=== PATIENT | male | born 1960 | race Caucasian/White ===

== ENCOUNTER 2021-07-30 09:27 | Emergency (ER) | payer OTHER ==
[~2021-07-30] VITALS: Ht 182.9 cm; Wt 88.6 kg
[2021-07-30 09:32] VITALS: BP 145/59
--- NOTE | 2021-07-30 10:49 | RAD ---
PROCEDURE: Left ribs including PA chest 07/30/2021 10:44 AM. INDICATION: Pain after falling yesterday. COMPARISON: None. FINDINGS: There are deformities of the posterior left fourth through sixth ribs. These appear chronic . There is a fracture of the left lateral sixth rib with minimal displacement. No other left rib abno rmality is seen. PA view of the chest shows no infiltrate or effusion. Heart size is normal. IMPRESSION: Chronic left rib deformities with acute fracture of the lateral sixth rib. Electronically signed by: Benny Singh Jr., MD (07/30/2021 10:46 AM) [id number]
[2021-07-30] MEDS ORDERED: HYDR-2155 PO (11:12)
[2021-07-30] MEDS ORDERED: CYCL10TA19 PO (11:12)
--- NOTE | 2021-07-30 11:13 | PHYS DOC ---
Past History Past Surgical History: No Surgical History Alcohol Use: Occasionally Adult General Chief Complaint Chief Complaint: RIB PAIN HPI HPI Patient is a 61-year-old male patient presenting to the ED today complaining of 5 out of 10 sharp intermittent left rib pain, symptoms began yesterday after he fell while running. Patient denies any loss of consciousness, denies hitting his head on the ground. Denies any neck, mid or low back pain. Reports the pain as worse on stretching. Review of Systems Review of Systems Constitutional: Denies fever or chills [] Eyes: Denies change in visual acuity, redness, or eye pain [] HENT: Denies nasal congestion or sore throat [] Respiratory: Reports left rib pain. Denies cough or shortness of breath [] Cardiovascular: No additional information not addressed in HPI [] GI: Denies abdominal pain, nausea, vomiting, bloody stools or diarrhea [] : Denies dysuria or hematuria [] Musculoskeletal: Denies back pain or joint pain [] Integument: Denies rash or skin lesions [] Neurologic: Denies headache, focal weakness or sensory changes [] All other systems were reviewed and found to be within normal limits, except as documented in this note. Physical Exam Physical Exam Constitutional: Well developed, well nourished, no acute distress, non-toxic appearance. [] HENT: Normocephalic, atraumatic, bilateral external ears normal, oropharynx moist, no oral exudates, nose normal. [] Eyes: PERRLA, EOMI, conjunctiva normal, no discharge. [] Neck: Normal range of motion, no tenderness, supple, no stridor. [] Cardiovascular:Heart rate regular rhythm, no murmur [] Lungs & Thorax: Left ribs with no obvious bruising, no obvious deformity, tenderness on palpation of the left lateral ribs approximately ribs 5 through 8 bilateral breath sounds clear to auscultation [] Abdomen: Bowel sounds normal, soft, no tenderness, no masses, no pulsatile masses. [] Skin: Warm, dry, no erythema, no rash. [] Back: No tenderness, no CVA tenderness. [] Extremities: No tenderness, no cyanosis, no clubbing, ROM intact, no edema. [] Neurologic: Alert and oriented X 3, normal motor function, normal sensory function, no focal deficits noted. [] Psychologic: Affect normal, judgement normal, mood normal. [] Current Patient Data Vital Signs Vital Signs Date Time Temp Pulse Resp B/P (MAP) Pulse Ox O2 Delivery O2 Flow Rate FiO2 07/30/21 09:32 97.9 59 16 145/59 (87) 98 Room Air EKG EKG [] Radiology/Procedures Radiology/Procedures []PROCEDURE: RIBS BILAT & PA CXR 4+V PROCEDURE: Left ribs including PA chest 07/30/2021 10:44 AM. INDICATION: Pain after falling yesterday. COMPARISON: None. FINDINGS: There are deformities of the posterior left fourth through sixth ribs. These appear chronic. There is a fracture of the left lateral sixth rib with minimal displacement. No other left rib abnormality is seen. PA view of the chest shows no infiltrate or effusion. Heart size is normal. IMPRESSION: Chronic left rib deformities with acute fracture of the lateral sixth rib. Electronically signed by: Derrick Singh Jr., MD (07/30/2021 10:46 AM) [id number] DICTATED AND SIGNED BY: DERRICK SINGH Jr, MD DATE: 07/30/21 1044 CC: FRANCISCO ZUNIGA MD; FRANCK ESQUIVEL APRN; AVA FORDE DO ~MTH0 0 Heart Score C/O Chest Pain: N/A Risk Factors: Risk Factors: DM, Current or recent (<one month) smoker, HTN, HLP, family history of CAD, obesity. Risk Scores: Risk Factors: DM, Current or recent (<one month) smoker, HTN, HLP, family history of CAD, obesity. Course & Med Decision Making Course & Med Decision Making Pertinent Labs and Imaging studies reviewed. (See chart for details) This is a 61-year-old male patient presented to the ED today with rib pain after falling. Left rib x-rays interpreted by radiologist were noted for acute fract ure of the lateral sixth rib. Patient was offered incentive spirometry which he refused. Discharged home flexeril, and norco. F/u with PCP in one week Alina Disclaimer Dragon Disclaimer This electronic medical record was generated, in whole or in part, using a voice recognition dictation system. Departure Departure: Impression: Primary Impression: Fall Additional Impression: Left rib fracture Disposition: HOME / SELF CARE / HOMELESS Condition: STABLE Referrals: AVA FORDE DO (PCP) follow up next week Patient Instructions: Rib Fracture, [id number] Additional Instructions: You have fractured your rib number 6 on the left side. Please take deep breaths 10 times every hour while awake. Apply ice to the are as tolerated. Take the prescribed medications as needed for pain. Follow-up with your doctor next week Scripts Hydrocodone Bit/Acetaminophen (HYDROCODONE-APAP 5-325 ) 1 Each Tablet 1 TAB PO PRN Q6HRS PRN for PAIN, #12 TAB 0 Refills Prov: FRANCK ESQUIVEL SHANK CUTTER 07/30/21 Cyclobenzaprine Hcl (CYCLOBENZAPRINE HCL) 10 Mg Tablet 1 TAB PO TID, #30 TAB Prov: FRANCK ESQUIVEL SHANK CUTTER 07/30/21 Problem Qualifiers Primary Impression: Fall Encounter type: initial encounter Qualified Codes: W19.XXXA - Unspecified fall, initial encounter Additional Impression: Left rib fracture Encounter type: initial encounter Rib fracture type: single rib Fracture type: closed Qualified Codes: S22.32XA - Fracture of one rib, left side, initial encounter for closed fracture FRANCK ESQUIVEL SHANK CUTTER Jul 30, 2021 11:13
== END 2021-07-30 11:34 | disposition home or self-care (01) ==
LOC: ER 09:27
DX: S22.32XA Fracture of one rib, left side, initial encounter for closed fracture (principal); W18.39XA Other fall on same level, initial encounter; Y93.02 Activity, running; Y92.89 Other specified places as the place of occurrence of the external cause; Y99.8 Other external cause status
CPT/HCPCS: 71111; 99283-25